=== PATIENT | male | born 1970 | race Caucasian/White ===

== ENCOUNTER 2020-02-25 10:40 | Outpatient (CLI) | payer OTHER, SELFPAY ==
--- NOTE | ~2020-02-25 | XR_ITS ---
EXAMINATION: XR abdomen/kub 1V INDICATION: Calculus of kidney TECHNIQUE: Supine views of the abdomen were obtained on 2 radiographs. COMPARISON: 05/16/2019 FINDINGS: Bowel contents project over the kidneys limiting sensitivity for renal stones. There appear to be multiple stable stones in the lower pole of the left kidney. No stones are identified along th e expected courses of the ureters or within the urinary bladder. Stable pelvic phleboliths are noted. There are no dilated loops of bowel. IMPRESSION: 1. Apparently stable left nephrolithiasis, sensitivity limited by bowel contents. Reviewed, dictated and finalized at location A. IMPRESSION: 1. Apparently stable left nephrolithiasis, sensitivity limited by bowel content s.
== END 2020-02-25 10:41 | disposition home or self-care (01) ==
LOC: ANHIMG 10:48
PROVIDERS: PCP Internal Medicine; Visit Provider Internal Medicine
DX: N20.0 Calculus of kidney (principal)
CPT/HCPCS: 74018

== ENCOUNTER 2020-07-16 08:00 | Outpatient (NON) | payer OTHER, SELFPAY ==
[2020-07-16 17:42] LABS: SARS-CoV-2 RNA PCR Negative
== END 2020-07-16 08:01 ==
PROVIDERS: PCP Internal Medicine; Visit Provider Internal Medicine
DX: R68.89 Other general symptoms and signs (principal); Z20.822 Contact with and (suspected) exposure to COVID-19
CPT/HCPCS: C9803; U0003

== ENCOUNTER 2023-01-07 12:11 | Outpatient (CLI) | payer BC, SELFPAY ==
--- NOTE | ~2023-01-07 | XR_ITS ---
Lumbosacral Spine: AP and lateral views Clinical History: Pain Findings: The normal lordotic curve is maintained. The vertebral bodies and posterior elements are i ntact. The intervertebral disc spaces are preserved. The sacroiliac joints are normally outlined. Impression: No significant abnormality. Reviewed, dictated and finalized at [facility]. Impression: No significant abnormality.
--- NOTE | ~2023-01-07 | XR_ITS ---
Thoracic spine: Clinical Indication: Back pain AP and lateral views were performed. No fracture is seen. There is normal alignment of the vertebrae. The intervertebral disc spaces appe ar normal. Paravertebral soft tissues appear normal. Impression: No significant abnormalities noted. Reviewed, dictated and finalized at [facility]. Impression: No significant abnormalities noted.
--- NOTE | ~2023-01-07 | XR_ITS ---
Supine and upright views of the abdomen Clinical history: Kidney stone COMPARISON: 02/25/2020 Findings: Bowel gas pattern is nonspecific. No evidence for obstruction or free air. 4 probable bilat eral renal stones, measuring up to 5 mm in the left kidney, and approximately 4 mm the right kidney.. Osseous structures are intact. Impression: Bilateral nephrolithiasis, as noted above. Reviewed, dictated and finalized at location . Impression: Bilateral nephrolithiasis, as noted above.
== END 2023-01-07 12:12 | disposition home or self-care (01) ==
LOC: ANHIMG 12:12
PROVIDERS: PCP Internal Medicine; Visit Provider Internal Medicine
DX: N20.0 Calculus of kidney (principal); R10.9 Unspecified abdominal pain; M54.9 Dorsalgia, unspecified
CPT/HCPCS: 72072; 72100; 74018

== ENCOUNTER 2023-04-08 12:20 | Emergency (ER) | payer BC, SELFPAY ==
--- NOTE | ~2023-04-08 | XR_ITS ---
EXAMINATION: XR hip LT 2V w AP pelvis DATE: 04/08/2023 12:47 INDICATION: Left hip pain. Fall. TECHNIQUE: An anteroposterior view of the pelvis and 2 views of left hip were obtained. COMPARISON: None. FINDINGS: Bone alignment is normal. No fracture. There is mild lumbar spondylosis. There is mild oste oarthritis of the hips. IMPRESSION: 1. Mild osteoarthritis of the hips. Reviewed, dictated and finalized at location E.
[2023-04-08 12:33] VITALS: BP 152/99; PULSE 107; RESP 24; TEMP 35.8; O2SAT 100
--- NOTE | 2023-04-08 12:44 | ED.LOWEXIN ---
HPI - Extremity Injury (Lower) General Chief Complaint: Back Pain/Injury Stated Complaint: Left Hip Injury/Fall Time Seen by Provider: 04/08/23 13:10 Source: patient and RN notes reviewed Mode of arrival: ambulatory Limitations: no limitations History of Present Illness HPI Narrative: 52-year-old male presents with concern for left hip pain. Reports 9 days ago he fell in a parking lot landing on his left hip. Reports he had some achiness since that time but today he bent over and felt a sudden ?excruciating? pain in his left hip area going towards his thigh. He reports pain is worse when he walks it is, he can find more comfort when he is kneeling down or lying on his side. He denies loss of bowel or bladder function, perianal anesthesia. He denies new injury or trauma. He denies abdominal pain, fever. Denies bruising, rash, redness, warmth. He reports he took oxycodone with little relief. MD complaint: hip injury Related Data Home Medications Medication Instructions Recorded Confirmed cholecalciferol (vitamin D3) 50 50 mcg PO DAILY 05/01/21 04/08/23 mcg (2,000 unit) tablet Allergies Allergy/AdvReac Type Severity Reaction Status Date / Time No Known Allergies Allergy Unknown Verified 04/08/23 12:52 Review of Systems Review of Systems: CONSTITUTIONAL: Denies malaise, chills, sweats, or fever. CARDIOVASCULAR: Denies chest pain, palpitations, or edema. RESPIRATORY: Denies cough or dyspnea. GASTROINTESTINAL: Denies abdominal pain, nausea, vomiting, diarrhea, loss of bowel function GENITOURINARY: Denies dysuria, hematuria, frequency, loss of bladder function. SKIN: Denies rash or itching. MUSCULOSKELETAL: Reports left hip pain NEUROLOGIC: Denies numbness, weakness, or headache. All systems reviewed & are unremarkable except as noted in HPI and below [facility] Past Medical History Medical History (Updated 04/08/23 @ 13:23 by Montse Bolivar NP) Acute sinusitis BMI 30.0-30.9,adult BMI 31.0-31.9,adult BMI 32.0-32.9,adult BMI 33.0-33.9,adult BMI 34.0-34.9,adult Depression Dietary counseling and surveillance (09/01/17) Encounter for preventive health examination Encounter for routine adult health examination with abnormal findings Encounter to establish care Essential (primary) hypertension Follow up Hypersomnolence Kidney stones Mixed hyperlipidemia 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 Polycythemia Rash Testosterone deficiency Type 2 diabetes mellitus with hyperglycemia Umbilical hernia Vitamin B12 deficiency Vitamin B2 deficiency Vitamin D deficiency Surgical History Surgical History History of kidney surgery Family History Family History Father Family history of diabetes mellitus in first degree relative Social History Social History Smoking status: Never smoker Second hand tobacco smoke exposure: No Alcohol intake: never Lack of Transportation: No Lack of Food: Never True Current Housing: I Have Housing Concerned About Future Housing: No Difficulty Paying Gas/Electric Bills: No Difficulty Paying for Meds: No Currently Unemployed: No Education: Bachelor's Degree Difficulty w/ Childcare or Family Care: No Occupation/Education: occupation Gender identity (if verbalized by the patient): Male Comments At time of signature, agree with nursing past medical, surgical, social and family history. There is no relevant family history pertinent to the presenting complaint Exam Narrative: GENERAL: Well-appearing, well-nourished, and in no acute distress. HEAD: Normocephalic, atraumatic. EYES: PERRLA and EOMI. NECK: Supple. No lymphadenopathy. CHEST: Clear to auscultation. No respiratory distress. HEART: Regular rate and rhythm. Distal pulses palpable and equal, cap refill <3 seconds ABDOMEN: Soft, nontender, non
[2023-04-08] MEDS: KETOROLAC (*BKC) 60 MG/2 ML VIAL IM (12:57)
== END 2023-04-08 13:29 | disposition home or self-care (01) ==
PROVIDERS: Emergency Provider Nurse Practitioner; PCP Internal Medicine
DX: M54.30 Sciatica, unspecified side (principal); I10 Essential (primary) hypertension; E78.2 Mixed hyperlipidemia; W18.30XA Fall on same level, unspecified, initial encounter; Y92.481 Parking lot as the place of occurrence of the external cause
CPT/HCPCS: 73502; 96372; 99213; G0463; J1885

== ENCOUNTER → 2023-05-02 09:44 | Outpatient (CLI) | payer BC, SELFPAY ==
--- NOTE | ~2023-05-02 | MR_ITS ---
MRI of the lumbar spine Clinical History: Left sciatica Technique: Axial T2-weighted images, and sagittal T1-weighted, T2-weighted, and and T2 fat-sat images were acquired. Findings: There is no fracture or subluxation of the lumbar spine. Vertebral bodies maintain normal h eight and alignment. No suspicious bone marrow signal abnormality seen. At L1-L2, there is no disc bulge or herniation. There is mild facet arthropathy. No central canal mary nosis or neural foraminal narrowing. At L2-L3, there is mild diffuse disc bulge and mild to moderate facet arthropathy. No central canal s tenosis. Bilateral neural foramina are preserved. At L3-L4, there is disc herniation at the left paracentral disc herniation extending superiorly, prob ably partially involving the left neural foramen. There is marked narrowing of the left neural forame n. Right neural foramen preserved. There is left lateral recess stenosis. At L4-L5, there is mild diffuse disc bulge with moderate to advanced facet arthropathy. No artie cent ral canal stenosis. Neural foramina are preserved. At L5-S1, there is mild disc bulge with mild facet arthropathy. No central canal stenosis or neural f oraminal narrowing. Paravertebral soft tissues are unremarkable. Impression: Disc herniation/extrusion at the left paracentral region at L3-L4, extending superiorly behind the L3 vertebral body. Associated left lateral recess stenosis and marked narrowing of the left neural fora men at this level. Additional mild degenerative changes, as above. Reviewed, dictated and finalized at [facility]. Impression: Disc herniation/extrusion at the left paracentral region at L3-L4, extending echavarria periorly behind the L3 vertebral body. Associated left lateral recess stenosis and marked narrowing of the left neural foramen at this level. Additional mild degenerative changes, as above.
== END ==
PROVIDERS: PCP Internal Medicine; Visit Provider Internal Medicine
DX: M54.32 Sciatica, left side (principal); R20.2 Paresthesia of skin; M51.26 Other intervertebral disc displacement, lumbar region
CPT/HCPCS: 72148

== ENCOUNTER 2024-05-02 06:17 | Emergency (ER) | payer BC, SELFPAY ==
--- NOTE | ~2024-05-02 | CT_ITS ---
EXAMINATION: CT abdomen pelvis w con DATE: 05/02/2024 07:54 INDICATION: Left lower quadrant abdominal pain. TECHNIQUE: Computed tomography (CT) of the abdomen and pelvis was performed with 100 mL Omnipaque 350 intravenous contrast. Automated exposure control and iterative reconstruction technique were employe d. The dose-length product was 761.90 mGy-cm. COMPARISON: CT abdomen and pelvis 04/26/2019 FINDINGS: The visualized portions of the lung bases demonstrate minimal atelectasis. No pleural effus ion. The heart size is normal. There are coronary artery calcifications. No pericardial effusion. The liver, gallbladder, spleen, pancreas, and adrenal glands normal. There is cortical thinning of the k idneys. There are 3 stones in right kidney measuring up to 8 mm. There are 4 stones in left kidney me asuring up to 13 mm. There is a 7 mm cyst in left kidney. The prostate is mildly enlarged. There are no dilated loops of bowel. The appendix is not visualized. There are no pathologically enlarged lymph nodes. There is no free intraperitoneal fluid. There is chronic asymmetric fat in left inguinal zulma l that may be a hernia. There is moderate thoracic and lumbar spondylosis. IMPRESSION: 1. Bilateral nonobstructing kidney stones. 2. Chronic asymmetric fat in left inguinal canal that may be a hernia. Reviewed, dictated and finalized at location A.
[2024-05-02 06:19] VITALS: BP 145/98; PULSE 117; RESP 22; TEMP 36.6; O2SAT 99
[2024-05-02 06:50] LABS: Basophils Absolute Auto 0.1 K/mm3 (0.0-0.1); Basophils Percent Auto 0.3 % (0.2-1.2); Eosinophils Absolute Auto 0.4 K/mm3 (0-0.3); Eosinophils Percent Auto 1.8 % (0-4.4); Hematocrit 51.8 % (42.0-52.0); Hemoglobin 17.5 g/dL (14.0-18.0); Immature Granulocyte Absolute 0.12 K/mm3 (0.00-0.031); Immature Granulocyte Percent A 0.5 % (0-0.5); Lymphocytes Absolute Auto 1.45 K/mm3 (0.9-3.2); Lymphocytes Percent Auto 6.2 % (18.3-44.2); Mean Corpuscular HGB Conc 33.8 g/dl (32-36); Mean Corpuscular Hemoglobin 29.2 pg (26-34); Mean Corpuscular Volume 86.5 fl (80-100); Mean Platelet Volume 10.6 fl (7.4-10.4); Monocytes Absolute Auto 1.8 K/mm3 (0.1-0.6); Monocytes Percent Auto 7.8 % (2.6-8.5); Neutrophils Absolute Auto 19.5 K/mm3 (1.3-6.7); Neutrophils Percent Auto 83.4 % (45.5-73.1); Platelet Count Result 252 k/mm3 (150-375); Red Blood Count 5.99 M/mm3 (4.6-6.20); Red Cell Distribution Width 12.6 % (11.5-14.5); White Blood Count 23.4 K/mm3 (4.5-10.0)
[2024-05-02 07:00] LABS: Alanine Aminotransferase 25 U/L (6-50); Albumin Level 4.7 g/dL (3.5-5.1); Alkaline Phosphatase 52 U/L (38-126); Anion Gap 13 mmol/L (4-12); Aspartate Amino Transferase 20 U/L (17-59); Bilirubin,Total 1.4 mg/dL (0.2-1.3); Blood Urea Nitrogen 18 mg/dL (9-20); Calcium 9.6 mg/dL (8.4-10.2); Carbon Dioxide 23 mmol/L (22-30); Chloride 102 mmol/L (98-107); Estimated CRCL calculation 62 ml/min; Estimated Glomerular Filt Rate 58; Glucose 287 mg/dL (65-110); Lipase 415 U/L (23-300); Potassium 3.9 mmol/L (3.4-5.0); Sodium 138 mmol/L (137-145)
[2024-05-02 07:29] LABS: Add Urine Microscopic? NO; Appearance Urine Clear (Clear); Bilirubin Urine Negative (Negative); Blood Urine Negative (Negative); Color Urine Yellow (Yellow); Glucose Urine UA 3+ mg/dL (Negative); Ketones Urine Trace mg/dL (Negative); Leukocyte Esterase Ur Negative LEU/UL (Negative); Nitrate Urine Negative (Negative); Protein Urine Negative (Negative); Specific Grav Ur 1.041 (1.001-1.035); Urobilinogen Urine 0.2 mg/dL (<2.0)
--- NOTE | 2024-05-02 07:32 | ED_ITS ---
HPI - Abdominal Pain General Chief Complaint: Abdominal Pain Stated Complaint: abd pain vomiting ulcer Time Seen by Provider: 05/02/24 06:56 History of Present Illness HPI narrative: Patient is a 53-year-old male who presents ER with sudden onset abdominal pain diarrhea. Began this morning at 3:00 a.m.. Cramping in nature. Worse in the lower abdomen. No fevers or chills or sweats. Has associated diarrhea. No known sick contacts. He has not been eating at [employer] (recent e coli outbreak). Patient has had multiple episodes of emesis which is abnormal for him. Related Data Home Medications Medication Instructions Recorded Confirmed cholecalciferol (vitamin D3) 50 50 mcg PO DAILY 05/01/21 03/27/24 mcg (2,000 unit) tablet lisinopril 30 mg tablet 30 mg PO DAILY 06/22/23 03/27/24 testosterone undecanoate 198 mg 198 mg PO BID 03/30/24 capsule Allergies Allergy/AdvReac Type Severity Reaction Status Date / Time No Known Allergies Allergy Unknown Verified 03/27/24 10:07 Review of Systems Review of Systems: All systems reviewed & are unremarkable except as noted in HPI and below Constitutional: Constitutional: Reports no additional constitutional complaints ENT: Reports system reviewed and no additional complaints, except as documented Cardiovascular: Cardiovascular: Reports no additional cardiovascular complaints Respiratory: Respiratory: Reports no additional respiratory complaints Gastrointestinal: Gastrointestinal: Reports abdominal pain, Reports diarrhea, Reports nausea and Reports vomiting Genitourinary: Genitourinary: Reports no additional male genitourinary compl aints [facility] Past Medical History Medical History (Updated 05/02/24 @ 12:05 by Danny Parra MD) Acute sinusitis BMI 29.0-29.9,adult BMI 30.0-30.9,adult BMI 31.0-31.9,adult BMI 32.0-32.9,adult BMI 33.0-33.9,adult BMI 34.0-34.9,adult Chronic back pain Depression Dietary counseling and surveillance (09/01/17) Encounter for preventive health examination Encounter for routine adult health examination with abnormal findings Encounter for routine adult health examination without abnormal findings Encounter to establish care Essential (primary) hypertension Finger pain, left Follow up Hypersomnolence Kidney stones Left sided sciatica Mixed hyperlipidemia 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 Paresthesia of left lower extremity Polycythemia Rash Testosterone deficiency Type 2 diabetes mellitus with hyperglycemia Umbilical hernia Vitamin B12 deficiency Vitamin B2 deficiency Vitamin D deficiency Surgical History Surgical History History of kidney surgery Family History Family History Father Family history of diabetes mellitus in first degree relative Social History Social History Smoking status: Never smoker Second hand tobacco smoke exposure: No Alcohol intake: never Lack of Transportation: No Lack of Food: Never True Current Housing: I Have Housing Concerned About Future Housing: No Difficulty Paying Gas/Electric Bills: No Difficulty Paying for Meds: No Currently Unemployed: No Education: Bachelor's Degree Difficulty w/ Childcare or Family Care: No Occupation/Education: occupation Gender identity (if verbalized by the patient): Male Exam Narrative: GENERAL: Well-appearing, well-nourished, and in no acute distress. HEAD: Normocephalic, atraumatic. ENT: Mucous membranes moist. CHEST: Clear to auscultation. No respiratory distress. HEART: Regular rate and rhythm. Normal peripheral pulses. ABDOMEN: Soft, TTP to the LLQ, nondistended. EXTREMITIES: Normal range of motion. No edema. SKIN: Warm, dry, no rash. NEURO: Alert and oriented x3. PSYCH: Normal mood and affect. Course Course Emergency Course: Patient feels markedly improved after 2 L IV fluid as well as Zofran and Phenergan. Leukocytosis noted however abdomen is soft nontender at this time and imaging year olds done no acute etiology. Suspect this is gastroenteritis likely viral cause. Discharge home. Vital Signs Vital signs: Vital Signs Temperature 97.9 F 05/02/24 06:19 Pulse Rate 117 H 05/02/24 06:19 Respiratory Rate 22 H 05/02/24 06:19 Blood Pressure 145/98 H 05/02/24 06:19 Pulse Oximetry 99 05/02/24 06:19 Oxygen Delivery Room Air 05/02/24 06:19 Temperature 97.9 F 05/02/24 06:19 Pulse Rate 101 H 05/02/24 11:41 Respiratory Rate 15 05/02/24 11:41 Blood Pressure 139/88 05/02/24 11:41 Pulse Oximetry 100 05/02/24 11:41 Oxygen Delivery Room Air 05/02/24 06:19 MDM - Abdominal Pain Lab Data 05/02/24 06:41 05/02/24 06:41 Labs: Lab Results 05/02/24 05/02/24 Range/Units 06:41 07:21 WBC 23.4 H (4.5-10.0) K/mm3 RBC 5.99 (4.6-6.20) M/mm3 Hgb 17.5 (14.0-18.0) g/dL Hct 51.8 (42.0-52.0) % MCV 86.5 (80-100) fl MCH 29.2 (26-34) pg MCHC 33.8 (32-36) g/dl RDW 12.6 (11.5-14.5) % Plt Count 252 (150-375) k/mm3 MPV 10.6 H (7.4-10.4) fl Immature Gran % (Auto) 0.5 (0-0.5) % Neut % (Auto) 83.4 H (45.5-73.1) % Lymph % (Auto) 6.2 L (18.3-44.2) % [place] % (Auto) 7.8 (2.6-8.5) % Eos % (Auto) 1.8 (0-4.4) % Baso % (Auto) 0.3 (0.2-1.2) % Lymph # (Auto) 1.45 (0.9-3.2) K/mm3 [place] # (Auto) 1.8 H (0.1-0.6) K/mm3 Eos # (Auto) 0.4 H (0-0.3) K/mm3 Baso # (Auto) 0.1 (0.0-0.1) K/mm3 Abs Immat Gran (auto) 0.12 H (0.00-0.031) K/mm3 Absolute Neuts (auto) 19.5 H (1.3-6.7) K/mm3 Absolute Nucleated RBC 0.000 (0.0-0.012) K/mm3 Nucleated RBC % 0.0 (0.0-0.2) % Sodium 138 (137-145) mmol/L Potassium 3.9 (3.4-5.0) mmol/L Chloride 102 (98-107) mmol/L Carbon Dioxide 23 (22-30) mmol/L Anion Gap 13 H (4-12) mmol/L BUN 18 (9-20) mg/dL Creatinine 1.30 (0.7-1.3) mg/dL Estim Creat Clear Calc 62 ml/min Estimated GFR 58 L (59 - ) Glucose 287 H (65-110) mg/dL Calcium 9.6 (8.4-10.2) mg/dL Total Bilirubin 1.4 H (0.2-1.3) mg/dL AST 20 (17-59) U/L ALT 25 (6-50) U/L Alkaline Phosphatase 52 (38-126) U/L Total Protein 8.0 (6.3-8.2) g/dL Albumin 4.7 (3.5-5.1) g/dL Lipase 415 H (23-300) U/L Urine Color Yellow (Yellow) Urine Appearance Clear (Clear) Urine pH 5.0 (5.0-9.0) Ur Specific [place] 1.041 H (1.001-1.035) Urine Protein Negative (Negative) mg/dL Urine Glucose (UA) 3+ H (Negative) mg/dL Urine Ketones Trace H (Negative) mg/dL Ur Blood (Man) Negative (Negative) Urine Nitrate Negative (Negative) Urine Bilirubin Negative (Negative) Urine Urobilinogen 0.2 (<2.0) mg/dL Leukocyte Esterase Rfl Negative (Negative) JOÃO/UL Imaging Data Radiologist's impression: ITS Impressions Abdomen/Pelvis CT 05/02/24 08:01 IMPRESSION: 1. Bilateral nonobstructing kidney stones. 2. Chronic asymmetric fat in left inguinal canal that may be a hernia. Discharge Plan Discharge Clinical Impression: Gastroenteritis Patient Disposition: Home, Self-Care Condition: Stable Instructions: Gastroenteritis (ED) Additional Instructions: Please drink plenty of fluids at home. Return to the emergency department if you develop high fevers, have persistent severe abdominal pain, or have bloody stools or vomit, as these could be signs of a more serious medical emergency. Return to the emergency department if you are unable to keep down liquids because of severe nausea/vomiting. Prescriptions: New ondansetron 4 mg tablet,disintegrating 4 mg PO Q6H PRN (Reason: nausea and vomiting) Qty: 10 0RF dicyclomine 20 mg tablet 20 mg PO QID Qty: 20 0RF No Action lisinopril 30 mg tablet 30 mg PO DAILY cholecalciferol (vitamin D3) 50 mcg (2,000 unit) tablet 50 mcg PO DAILY Ozempic 2 mg/dose (8 mg/3 mL) pen injector See Rx Instructions .ROUTE .COMPLEX Qty: 9 1RF Dose Instruction: INJECT 2MG (0.75 ML) SUBCUTANEOUSLY WEEKLY Rx Instructions: INJECT 2MG (0.75 ML) SUBCUTANEOUSLY WEEKLY Farxiga 10 mg tablet See Rx Instructions .ROUTE .COMPLEX Qty: 90 1RF Dose Instruction: TAKE 1 TABLET BY MOUTH EVERY DAY Rx Instructions: TAKE 1 TABLET BY MOUTH EVERY DAY rosuvastatin 40 mg tablet See Rx Instructions .ROUTE .COMPLEX Qty: 90 1RF Dose Instruction: TAKE 1 TABLET BY MOUTH EVERY DAY NO LONGER ON ATORVASTATIN Rx Instructions: TAKE 1 TABLET BY MOUTH EVERY DAY NO LONGER ON ATORVASTATIN metformin 1,000 mg tablet See Rx Instructions .ROUTE .COMPLEX Qty: 225 0RF Dose Instruction: TAKE 1 TABLET BY MOUTH IN THE AM AND ONE AND A HALF TABS BY MOUTH IN THE PM. Rx Instructions: TAKE 1 TABLET BY MOUTH IN THE AM AND ONE AND A HALF TABS BY MOUTH IN THE PM. fenofibric acid (choline) 135 mg capsule,delayed release(DR/EC) See Rx Instructions .ROUTE .COMPLEX Qty: 90 0RF Dose Instruction: TAKE 1 CAPSULE BY MOUTH EVERY DAY Rx Instructions: TAKE 1 CAPSULE BY MOUTH EVERY DAY testosterone undecanoate 198 mg capsule 198 mg PO BID Rx Instructions: must administer with a meal/food Follow-up/Referrals: Mono Nick MD [Primary Care Provider] - 1 Week
[2024-05-02] MEDS: SODIUM CHLORIDE 0.9% IV 1,000 ML 999 ML IV CONT ×2 (07:52→10:28)
[2024-05-02] MEDS: MORPHINE SULFATE (*CRX) 4 MG/ML INJ IV PUSH (07:52)
[2024-05-02] MEDS: ONDANSETRON INJ 4 MG/2 ML VIAL IV PUSH (07:52)
[2024-05-02 08:04] VITALS: BP 139/94; PULSE 107; RESP 13; O2SAT 96
[2024-05-02 09:27] VITALS: BP 128/90; PULSE 105; RESP 14; O2SAT 96
[2024-05-02 09:59] VITALS: BP 148/89; PULSE 96; RESP 18; O2SAT 98
[2024-05-02] MEDS: DICYCLOMINE HCL INJ 20 MG/2 ML VIAL IM (10:28)
[2024-05-02] MEDS: PROMETHAZINE HCL 25 MG/ML AMPUL 12.5 MG IV PUSH (10:28)
[2024-05-02 11:41] VITALS: BP 139/88; PULSE 101; RESP 15; O2SAT 100
[2024-05-02 12:12] VITALS: BP 128/85; PULSE 99; RESP 15; O2SAT 96
== END 2024-05-02 12:24 | disposition home or self-care (01) ==
PROVIDERS: Emergency Medicine; Emergency Provider Emergency Medicine; PCP Internal Medicine
DX: K52.9 Noninfective gastroenteritis and colitis, unspecified (principal); I10 Essential (primary) hypertension; E78.2 Mixed hyperlipidemia; E11.9 Type 2 diabetes mellitus without complications; E55.9 Vitamin D deficiency, unspecified; E53.8 Deficiency of other specified B group vitamins; E53.0 Riboflavin deficiency; Z87.442 Personal history of urinary calculi; Z79.84 Long term (current) use of oral hypoglycemic drugs; Z79.899 Other long term (current) drug therapy; N20.0 Calculus of kidney
CPT/HCPCS: 36415; 74177; 80053; 81003; 83690; 85025; 96361; 96372; 96374; 96375; 99284; J0500; J2270; J2405; J2550; J7030; Q9967

== ENCOUNTER 2024-05-07 10:50 | Outpatient (CLI) | payer BC, SELFPAY ==
--- NOTE | ~2024-05-07 | US_ITS ---
EXAMINATION: US abdomen complete DATE: 05/07/2024 12:22 INDICATION: Unspecified abdominal pain TECHNIQUE: Multiple grayscale and Doppler ultrasound images of the abdomen were obtained. COMPARISON: None FINDINGS: Visualized portion of the pancreas are normal. Portions of the head and tail the pancreas are obscure d. Liver has normal contour, with a smooth surface. There is increased parenchymal echogenicity and c oarsened echotexture consistent with diffuse hepatic steatosis. No liver lesion identified. No intra hepatic biliary duct dilation suspected. Portal venous flow was seen in the hepatopetal, normal direc tion and has normal Doppler waveform. The gallbladder is normal in appearance. There is no cholelith iasis. The common bile duct measures 7 mm, which is mildly dilated. Sonographic Mike sign was repor jacob as negative by the refund clerk. There is normal renal contour and echogenicity bilaterally. The r ight kidney measures 11.9 x 6.2 x 6.0 cm and the left 11.3 x 6.1 x 5.4 cm. There are bilateral echoge maricarmen and shadowing renal stones measuring 11 mm in diameter at the upper pole of the right kidney and 9 mm at the lower pole of the left kidney. There is no hydronephrosis. Normal spleen measuring 12.4 cm maximal length. The visualized proximal to mid abdominal aorta and the proximal superior vena cava are normal. IMPRESSION: 1. Bilateral nonobstructing nephrolithiasis. 2. Diffuse hepatic steatosis. Reviewed, dictated and finalized at location A.
[2024-05-07 11:41] LABS: Amylase 136 U/L (30-110); Lipase 524 U/L (23-300)
[2024-05-07 11:46] LABS: Basophils Percent Auto 0.2 % (0.2-1.2); Eosinophils Absolute Auto 0.5 K/mm3 (0-0.3); Eosinophils Percent Auto 4.9 % (0-4.4); Hematocrit 50.9 % (42.0-52.0); Immature Granulocyte Absolute 0.05 K/mm3 (0.00-0.031); Immature Granulocyte Percent A 0.5 % (0-0.5); Lymphocytes Absolute Auto 1.76 K/mm3 (0.9-3.2); Lymphocytes Percent Auto 16.4 % (18.3-44.2); Mean Corpuscular HGB Conc 33.4 g/dl (32-36); Mean Corpuscular Hemoglobin 29.2 pg (26-34); Mean Corpuscular Volume 87.3 fl (80-100); Mean Platelet Volume 10.8 fl (7.4-10.4); Monocytes Absolute Auto 0.6 K/mm3 (0.1-0.6); Neutrophils Absolute Auto 7.7 K/mm3 (1.3-6.7); Platelet Count Result 228 k/mm3 (150-375); Red Blood Count 5.83 M/mm3 (4.6-6.20); Red Cell Distribution Width 12.8 % (11.5-14.5); White Blood Count 10.7 K/mm3 (4.5-10.0)
== END 2024-05-07 10:51 | disposition home or self-care (01) ==
LOC: ANHIMG 10:54
PROVIDERS: PCP Internal Medicine; Visit Provider Internal Medicine
DX: R10.9 Unspecified abdominal pain (principal); R11.2 Nausea with vomiting, unspecified; R74.8 Abnormal levels of other serum enzymes; I10 Essential (primary) hypertension; N20.0 Calculus of kidney; K76.0 Fatty (change of) liver, not elsewhere classified
CPT/HCPCS: 36415; 76700; 82150; 83690; 85025

== ENCOUNTER 2024-05-08 08:15 | Outpatient (CLI) | payer BC, SELFPAY ==
--- NOTE | ~2024-05-08 | CT_ITS ---
EXAMINATION: CT abdomen pelvis w con DATE: 05/08/2024 09:23 INDICATION: Epigastric abdominal pain. TECHNIQUE: Computed tomography (CT) of the abdomen and pelvis was performed with 100 mL Omnipaque 350 intravenous contrast. Automated exposure control and iterative reconstruction technique were employe d. The dose-length product was 866.73 mGy-cm. COMPARISON: CT abdomen and pelvis 05/02/2024 FINDINGS: The visualized portions of the lung bases demonstrate mild atelectasis. No pleural effusion . The heart size is normal. There are coronary artery calcifications. No pericardial effusion. The li tati, gallbladder, spleen, pancreas, and adrenal glands are normal. There is cortical thinning of the kidneys. There are cysts in the kidneys measuring up to 9 mm on the left. There are 3 stones in right kidney measuring up to 9 mm. There are 6 stones in left kidney measuring up to 10 mm. The prostate i s moderately enlarged. There are no dilated loops of bowel. The appendix is not visualized. There are no pathologically enlarged lymph nodes. There is chronic asymmetric fat in left inguinal canal. Ther e is no free intraperitoneal fluid. There is mild thoracic and lumbar spondylosis. IMPRESSION: 1. Bilateral nonobstructing kidney stones. 2. Chronic asymmetric fat in left inguinal canal that may be a hernia. Reviewed, dictated and finalized at location B.
== END 2024-05-08 08:16 | disposition home or self-care (01) ==
PROVIDERS: PCP Internal Medicine; Visit Provider Internal Medicine
DX: N20.0 Calculus of kidney (principal); E65 Localized adiposity
CPT/HCPCS: 74177; Q9967

== ENCOUNTER 2024-05-25 07:11 | Emergency (ER) | payer BC, SELFPAY ==
--- NOTE | ~2024-05-25 | XR_ITS ---
EXAMINATION: XR abdomen/kub 1V DATE: 05/25/2024 08:08 INDICATION: Constipation. Abdominal pain. TECHNIQUE: A supine view of the abdomen on 2 radiographs was obtained. COMPARISON: Abdomen radiographs 05/09/2023, CT abdomen and pelvis 05/08/2024 FINDINGS: There are no dilated loops of bowel. There is a small volume of stool in the colon. There a re phleboliths in the pelvis. There are stones in the kidneys measuring up to 8 mm on the right. IMPRESSION: 1. Normal bowel gas pattern. 2. Bilateral kidney stones. Reviewed, dictated and finalized at [facility]
[2024-05-25 07:10] VITALS: BP 162/116; PULSE 95; RESP 35; TEMP 36.2; O2SAT 100
[2024-05-25 07:39] LABS: Basophils Percent Auto 0.3 % (0.2-1.2); Eosinophils Absolute Auto 0.4 K/mm3 (0-0.3); Eosinophils Percent Auto 4.3 % (0-4.4); Hematocrit 46.7 % (42.0-52.0); Hemoglobin 16.7 g/dL (14.0-18.0); Immature Granulocyte Absolute 0.03 K/mm3 (0.00-0.031); Immature Granulocyte Percent A 0.3 % (0-0.5); Lymphocytes Absolute Auto 1.65 K/mm3 (0.9-3.2); Lymphocytes Percent Auto 16.1 % (18.3-44.2); Mean Corpuscular HGB Conc 35.8 g/dl (32-36); Mean Corpuscular Hemoglobin 29.9 pg (26-34); Mean Corpuscular Volume 83.7 fl (80-100); Mean Platelet Volume 10.5 fl (7.4-10.4); Monocytes Absolute Auto 0.5 K/mm3 (0.1-0.6); Monocytes Percent Auto 5.2 % (2.6-8.5); Neutrophils Absolute Auto 7.5 K/mm3 (1.3-6.7); Neutrophils Percent Auto 73.8 % (45.5-73.1); Platelet Count Result 195 k/mm3 (150-375); Red Blood Count 5.58 M/mm3 (4.6-6.20); Red Cell Distribution Width 12.3 % (11.5-14.5); White Blood Count 10.2 K/mm3 (4.5-10.0)
[2024-05-25 07:41] LABS: Add Urine Microscopic? NO; Appearance Urine Clear (Clear); Bilirubin Urine Negative (Negative); Blood Urine Negative (Negative); Color Urine Yellow (Yellow); Glucose Urine UA 3+ mg/dL (Negative); Ketones Urine Negative (Negative); Leukocyte Esterase Ur Negative LEU/UL (Negative); Nitrate Urine Negative (Negative); Protein Urine Negative (Negative); Specific Grav Ur 1.033 (1.001-1.035); Urobilinogen Urine 0.2 mg/dL (<2.0)
[2024-05-25 07:50] LABS: Alanine Aminotransferase 21 U/L (6-50); Albumin Level 4.3 g/dL (3.5-5.1); Alkaline Phosphatase 53 U/L (38-126); Anion Gap 15 mmol/L (4-12); Aspartate Amino Transferase 23 U/L (17-59); Bilirubin,Total 1.1 mg/dL (0.2-1.3); Blood Urea Nitrogen 16 mg/dL (9-20); Calcium 9.5 mg/dL (8.4-10.2); Carbon Dioxide 18 mmol/L (22-30); Chloride 102 mmol/L (98-107); Estimated CRCL calculation 67 ml/min; Estimated Glomerular Filt Rate > 60; Glucose 294 mg/dL (65-110); Lipase 210 U/L (23-300); Sodium 135 mmol/L (137-145)
[2024-05-25] MEDS: MORPHINE SULFATE (*CRX) 4 MG/ML INJ IV PUSH (08:22)
[2024-05-25] MEDS: ONDANSETRON INJ 4 MG/2 ML VIAL IV PUSH (08:22)
--- NOTE | 2024-05-25 08:22 | ED_ITS ---
HPI - Abdominal Pain General Chief Complaint: Abdominal Pain Stated Complaint: lower abd pain History of Present Illness HPI narrative: Patient is a 53-year-old male who presents ER with abdominal pain. Sharp and cramping. Reports he has been constipated for several days. Finally had a bowel movement just before I saw him. Reports it was firm. No urinary frequency urgency or dysuria. No vomiting. Was seen a couple weeks ago for gastroenteritis. He is scheduled to have an EGD Next week.. Related Data Home Medications Medication Instructions Recorded Confirmed lisinopril 30 mg tablet 30 mg PO DAILY 06/22/23 05/22/24 metformin 1,000 mg tablet 2,000 mg PO DAILY 05/22/24 05/22/24 semaglutide 2 mg/dose (8 mg/3 mL) 2 mg subcut WEEKLY 05/22/24 05/22/24 subcutaneous pen injector (Ozempic) Allergies Allergy/AdvReac Type Severity Reaction Status Date / Time No Known Allergies Allergy Unknown Verified 05/25/24 07:18 Review of Systems Review of Systems: All systems reviewed & are unremarkable except as noted in HPI and below Constitutional: Constitutional: Reports no additional constitutional complaints ENT: Reports system reviewed and no additional complaints, except as documented Cardiovascular: Cardiovascular: Reports no additional cardiovascular complaints Respiratory: Respiratory: Reports no additional respiratory complaints Gastrointestinal: Gastrointestinal: Reports abdominal pain, Reports constipation, Denies diarrhea, Denies nausea and Denies vomiting [facility] Past Medical History Medical History (Updated 05/25/24 @ 10:55 by Danny Parra MD) Abdominal pain Acute sinusitis BMI 29.0-29.9,adult BMI 30.0-30.9,adult BMI 31.0-31.9,adult BMI 32.0-32.9,adult BMI 33.0-33.9,adult BMI 34.0-34.9,adult Chronic back pain Depression Dietary counseling and surveillance (09/01/17) Encounter for preventive health examination Encounter for routine adult health examination with abnormal findings Encounter for routine adult health examination without abnormal findings Encounter to establish care Essential (primary) hypertension Finger pain, left Follow up Hospital discharge follow-up Hypersomnolence Kidney stones Left sided sciatica Mixed hyperlipidemia Nausea and vomiting 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 Paresthesia of left lower extremity Polycythemia Rash Testosterone deficiency Type 2 diabetes mellitus with hyperglycemia Umbilical hernia Vitamin B12 deficiency Vitamin B2 deficiency Vitamin D deficiency Surgical History Surgical History History of kidney surgery Family History Family History Father Family history of diabetes mellitus in first degree relative Social History Social History Smoking status: Never smoker Second hand tobacco smoke exposure: No Alcohol intake: never Substance use type: does not use Lack of Transportation: No Lack of Food: Never True Current Housing: I Have Housing Concerned About Future Housing: No Difficulty Paying Gas/Electric Bills: No Difficulty Paying for Meds: No Currently Unemployed: No Education: Bachelor's Degree Difficulty w/ Childcare or Family Care: No Living arrangements: with family Occupation/Education: occupation Gender identity (if verbalized by the patient): Male Spiritual care concerns: No Exam Narrative: GENERAL: Uncomfortable-appearing, well-nourished, and in no acute distress. HEAD: Normocephalic, atraumatic. ENT: Mucous membranes moist. CHEST: Clear to auscultation. No respiratory distress. HEART: Regular rate and rhythm. Normal peripheral pulses. ABDOMEN: Soft, diffuse abdominal discomfort without point tenderness, nondistended. EXTREMITIES: Normal range of motion. No edema. SKIN: Warm, dry, no rash. NEURO: Alert and oriented x3. PSYCH: Normal mood and affect. Course Course Emergency Course: Patient feeling improved. Still some mild discomfort on exam. Labs unremarkable. Discussed CT imaging only available if he is placed in ambulance to [facility] and may reveal imaging as we are currently without CT capability. Patient does not feel this is necessary as he is feeling improved in recently had imaging. He will be discharged with supportive care. Vital Signs Vital signs: Vital Signs Temperature 97.1 F L 05/25/24 07:10 Pulse Rate 95 05/25/24 07:10 Respiratory Rate 35 H 05/25/24 07:10 Blood Pressure 162/116 H 05/25/24 07:10 Pulse Oximetry 100 05/25/24 07:10 Oxygen Delivery Room Air 05/25/24 07:10 Temperature 97.1 F L 05/25/24 07:10 Pulse Rate 97 05/25/24 09:36 Respiratory Rate 18 05/25/24 09:36 Blood Pressure 134/93 H 05/25/24 09:36 Pulse Oximetry 99 05/25/24 09:36 Oxygen Delivery Room Air 05/25/24 07:10 MDM - Abdominal Pain Lab Data 05/25/24 07:33 05/25/24 07:33 Labs: Lab Results 05/25/24 Range/Units 07:33 WBC 10.2 H (4.5-10.0) K/mm3 RBC 5.58 (4.6-6.20) M/mm3 Hgb 16.7 (14.0-18.0) g/dL Hct 46.7 (42.0-52.0) % MCV 83.7 (80-100) fl MCH 29.9 (26-34) pg MCHC 35.8 (32-36) g/dl RDW 12.3 (11.5-14.5) % Plt Count 195 (150-375) k/mm3 MPV 10.5 H (7.4-10.4) fl Immature Gran % (Auto) 0.3 (0-0.5) % Neut % (Auto) 73.8 H (45.5-73.1) % Lymph % (Auto) 16.1 L (18.3-44.2) % [place] % (Auto) 5.2 (2.6-8.5) % Eos % (Auto) 4.3 (0-4.4) % Baso % (Auto) 0.3 (0.2-1.2) % Lymph # (Auto) 1.65 (0.9-3.2) K/mm3 [place] # (Auto) 0.5 (0.1-0.6) K/mm3 Eos # (Auto) 0.4 H (0-0.3) K/mm3 Baso # (Auto) 0.0 (0.0-0.1) K/mm3 Abs Immat Gran (auto) 0.03 (0.00-0.031) K/mm3 Absolute Neuts (auto) 7.5 H (1.3-6.7) K/mm3 Absolute Nucleated RBC 0.000 (0.0-0.012) K/mm3 Nucleated RBC % 0.0 (0.0-0.2) % Sodium 135 L (137-145) mmol/L Potassium 4.0 (3.4-5.0) mmol/L Chloride 102 (98-107) mmol/L Carbon Dioxide 18 L (22-30) mmol/L Anion Gap 15 H (4-12) mmol/L BUN 16 (9-20) mg/dL Creatinine 1.20 (0.7-1.3) mg/dL Estim Creat Clear Calc 67 ml/min Estimated GFR > 60 (59 - ) Glucose 294 H (65-110) mg/dL Calcium 9.5 (8.4-10.2) mg/dL Total Bilirubin 1.1 (0.2-1.3) mg/dL AST 23 (17-59) U/L ALT 21 (6-50) U/L Alkaline Phosphatase 53 (38-126) U/L Total Protein 7.0 (6.3-8.2) g/dL Albumin 4.3 (3.5-5.1) g/dL Lipase 210 (23-300) U/L Urine Color Yellow (Yellow) Urine Appearance Clear (Clear) Urine pH 5.0 (5.0-9.0) Ur Specific [place] 1.033 (1.001-1.035) Urine Protein Negative (Negative) mg/dL Urine Glucose (UA) 3+ H (Negative) mg/dL Urine Ketones Negative (Negative) mg/dL Ur Blood (Man) Negative (Negative) Urine Nitrate Negative (Negative) Urine Bilirubin Negative (Negative) Urine Urobilinogen 0.2 (<2.0) mg/dL Leukocyte Esterase Rfl Negative (Negative) JOÃO/UL Imaging Data Radiologist's impression: ITS Impressions Abdomen X-Ray 05/25/24 08:24 IMPRESSION: 1. Normal bowel gas pattern. 2. Bilateral kidney stones. Discharge Plan Discharge Clinical Impression: Abdominal bloating with cramps Patient Disposition: Home, Self-Care Condition: Stable Instructions: Abdominal Pain (ED) Additional Instructions: Return to the emergency department if you develop severe abdominal pain, severe nausea and vomiting to the point where you are unable to keep down fluids, if you develop chest pain or difficulty breathing, blood in your stool, dizziness or fainting, or if you develop any other new or concerning symptoms as these could be signs of more serious medical illness. Try to stay well hydrated. Prescriptions: New dicyclomine 20 mg tablet 20 mg PO QID Qty: 20 0RF ondansetron 4 mg tablet,disintegrating 4 mg PO Q6H PRN (Reason: nausea and vomiting) Qty: 10 0RF docusate sodium 100 mg capsule 100 mg PO BID Qty: 14 0RF No Action lisinopril 30 mg tablet 30 mg PO DAILY metformin 1,000 mg tablet 2,000 mg PO DAILY Ozempic 2 mg/dose (8 mg/3 mL) pen injector 2 mg subcut WEEKLY Patient Comments: tuesday or tuesday Rx Instructions: INJECT 2MG (0.75 ML) SUBCUTANEOUSLY WEEKLY Farxiga 10 mg tablet See Rx Instructions .ROUTE .COMPLEX Qty: 90 1RF Dose Instruction: TAKE 1 TABLET BY MOUTH EVERY DAY Rx Instructions: TAKE 1 TABLET BY MOUTH EVERY DAY rosuvastatin 40 mg tablet See Rx Instructions .ROUTE .COMPLEX Qty: 90 1RF Dose Instruction: TAKE 1 TABLET BY MOUTH EVERY DAY NO LONGER ON ATORVASTATIN Rx Instructions: TAKE 1 TABLET BY MOUTH EVERY DAY NO LONGER ON ATORVASTATIN fenofibric acid (choline) 135 mg capsule,delayed release(DR/EC) See Rx Instructions .ROUTE .COMPLEX Qty: 90 0RF Dose Instruction: TAKE 1 CAPSULE BY MOUTH EVERY DAY Rx Instructions: TAKE 1 CAPSULE BY MOUTH EVERY DAY Follow-up/Referrals: Mono Nick MD [Primary Care Provider] - 1 Week
[2024-05-25 09:36] VITALS: BP 134/93; PULSE 97; RESP 18; O2SAT 99
[2024-05-25 11:18] VITALS: BP 140/94; PULSE 100; RESP 18; O2SAT 96
== END 2024-05-25 11:19 | disposition home or self-care (01) ==
PROVIDERS: Emergency Provider Emergency Medicine; PCP Internal Medicine
DX: R10.9 Unspecified abdominal pain (principal); R14.0 Abdominal distension (gaseous); E11.9 Type 2 diabetes mellitus without complications; E78.2 Mixed hyperlipidemia; E53.8 Deficiency of other specified B group vitamins; E55.9 Vitamin D deficiency, unspecified; E53.0 Riboflavin deficiency; Z79.899 Other long term (current) drug therapy; Z79.84 Long term (current) use of oral hypoglycemic drugs; Z79.85 Long-term (current) use of injectable non-insulin antidiabetic drugs; Z87.442 Personal history of urinary calculi; N20.0 Calculus of kidney
CPT/HCPCS: 36415; 74018; 80053; 81003; 83690; 85025; 96374; 96375; 99284; J2270; J2405

== ENCOUNTER 2024-05-29 00:26 | Day surgery (SDC) | payer BC, SELFPAY ==
[2024-05-22 10:37] VITALS: BMI 28.2
[2024-05-29 10:00] VITALS: BP 154/96; PULSE 89; RESP 20; TEMP 36.3; O2SAT 100; BMI 28.8
[2024-05-29 10:10] LABS: Glucose Point of Care 156 mg/dl (65-105)
[2024-05-29] MEDS: LACTATED RINGERS 1,000 ML 150 ML IV CONT (10:23)
--- NOTE | 2024-05-29 10:23 | P.PNAN_ITS ---
Anes - Initial Pre Proc Eval Procedure: Operation Date: 05/29/24 11:00 Proposed Procedures p Esophagogastroduodenoscopy - Vidal Galloway MD Date/Time: 05/29/24 10:23 Surgeon: Vidal Galloway MD Pre Op Diagnosis: Abd Pain Patient Data Age: 53 Gender: M Height: 1.8 m Weight: 93.7 kg Last Vital Signs Temp 97.3 F L 05/29/24 10:00 Pulse 89 05/29/24 10:00 Resp 20 05/29/24 10:00 BP 154/96 H 05/29/24 10:00 Pulse Ox 100 05/29/24 10:00 O2 Del Method Room Air 05/29/24 10:00 Allergies Allergy/AdvReac Type Severity Reaction Status Date / Time No Known Allergies Allergy Unknown Verified 05/29/24 10:09 Home Medications Medication Instructions Recorded Confirmed Type lisinopril 30 mg tablet 30 mg PO DAILY 06/22/23 05/29/24 History dapagliflozin propanediol 10 mg See Rx Instructions .Route 01/13/24 05/29/24 Rx tablet (Farxiga) .COMPLEX #90 tabs rosuvastatin 40 mg tablet See Rx Instructions .Route 01/30/24 05/29/24 Rx .COMPLEX #90 tabs metformin 1,000 mg tablet 2,000 mg PO DAILY 05/22/24 05/29/24 History semaglutide 2 mg/dose (8 mg/3 mL) 2 mg subcut WEEKLY 05/22/24 05/29/24 History subcutaneous pen injector (Ozempic) dicyclomine 20 mg tablet 20 mg PO QID #20 tabs 05/25/24 05/29/24 Rx docusate sodium 100 mg capsule 100 mg PO BID #14 caps 05/25/24 05/29/24 Rx ondansetron 4 mg disintegrating 4 mg PO Q6H PRN nausea and 05/25/24 05/29/24 Rx tablet vomiting #10 tabs fenofibric acid (choline) 135 mg See Rx Instructions .Route 05/28/24 05/29/24 Rx capsule,delayed release .COMPLEX #90 caps metformin 1,000 mg tablet 1,000 mg PO .COMPLEX #225 tabs 05/28/24 05/29/24 Rx Laboratory Tests 05/29/24 10:05 POC Capillary Glucose 156 H mg/dl (65-105) Patient hx anesthesia problems: none Family hx anesthesia problems: none Results Review: All pre-operative results and documents have been reviewed as part of the pre- operative evaluation. [facility] Past Medical History Medical History (Updated 05/26/24 @ 00:01 by Jesse Faustin) Abdominal pain Acute sinusitis BMI 29.0-29.9,adult BMI 30.0-30.9,adult BMI 31.0-31.9,adult BMI 32.0-32.9,adult BMI 33.0-33.9,adult BMI 34.0-34.9,adult Chronic back pain Depression Dietary counseling and surveillance (09/01/17) Encounter for preventive health examination Encounter for routine adult health examination with abnormal findings Encounter for routine adult health examination without abnormal findings Encounter to establish care Essential (primary) hypertension Finger pain, left Follow up Hospital discharge follow-up Hypersomnolence Kidney stones Left sided sciatica Mixed hyperlipidemia Nausea and vomiting 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 Paresthesia of left lower extremity Polycythemia Rash Testosterone deficiency Type 2 diabetes mellitus with hyperglycemia Umbilical hernia Vitamin B12 deficiency Vitamin B2 deficiency Vitamin D deficiency Surgical History Surgical History History of kidney surgery Family History Family History Father Family history of diabetes mellitus in first degree relative Social History Social History Smoking status: Never smoker Second hand tobacco smoke exposure: No Alcohol intake: never Substance use type: does not use Lack of Transportation: No Lack of Food: Never True Current Housing: I Have Housing Concerned About Future Housing: No Difficulty Paying Gas/Electric Bills: No Difficulty Paying for Meds: No Currently Unemployed: No Education: Bachelor's Degree Difficulty w/ Childcare or Family Care: No Living arrangements: with family Occupation/Education: occupation Gender identity (if verbalized by the patient): Male Spiritual care concerns: No Anes - Eval Final PreProcedure Day of Procedure 05/29/24 10:23 Patient weight: normal Heart: regular rate and rhythm Lungs: clear to auscultation Airway: Mallampati scale class II Neurological: alert and oriented Last oral intake: >/= 8 hours ASA classification: III Emergent: no Anesthetic plan: proceed Results Review: All pre-operative results and documents have been reviewed as part of the pre- operative evaluation. Informed Consent: The patient's anesthetic plan and its attendant risks and benefits were discussed with the patient/family/POA. Questions were solicited and answers provided to the satisfaction of the patient/family/POA.
--- NOTE | 2024-05-29 11:27 | P.HP_ITS ---
H&P: HPI History of Present Illness Date/Time: 05/29/24 11:27 Chief Complaint: Abdominal pain Narrative: the patient was seen on 05/25/2024 in the emergency department for an attack of periumbilical/ epigastric pain. He states he has been having recurrent episodes of abdominal pain and is referred by his primary care physician for an EGD. He denies melena, hematemesis, or unintentional weight loss. Review of Systems Review of Systems: All systems reviewed & are unremarkable except as noted in HPI and below [facility] Past Medical History Medical History (Updated 05/26/24 @ 00:01 by [facility] Ramin) Abdominal pain Acute sinusitis BMI 29.0-29.9,adult BMI 30.0-30.9,adult BMI 31.0-31.9,adult BMI 32.0-32.9,adult BMI 33.0-33.9,adult BMI 34.0-34.9,adult Chronic back pain Depression Dietary counseling and surveillance (09/01/17) Encounter for preventive health examination Encounter for routine adult health examination with abnormal findings Encounter for routine adult health examination without abnormal findings Encounter to establish care Essential (primary) hypertension Finger pain, left Follow up Hospital discharge follow-up Hypersomnolence Kidney stones Left sided sciatica Mixed hyperlipidemia Nausea and vomiting 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 Paresthesia of left lower extremity Polycythemia Rash Testosterone deficiency Type 2 diabetes mellitus with hyperglycemia Umbilical hernia Vitamin B12 deficiency Vitamin B2 deficiency Vitamin D deficiency Surgical History Surgical History History of kidney surgery Family History Family History Father Family history of diabetes mellitus in first degree relative Social History Social History Smoking status: Never smoker Second hand tobacco smoke exposure: No Alcohol intake: never Substance use type: does not use Lack of Transportation: No Lack of Food: Never True Current Housing: I Have Housing Concerned About Future Housing: No Difficulty Paying Gas/Electric Bills: No Difficulty Paying for Meds: No Currently Unemployed: No Education: Bachelor's Degree Difficulty w/ Childcare or Family Care: No Living arrangements: with family Occupation/Education: occupation Gender identity (if verbalized by the patient): Male Spiritual care concerns: No Meds Home Medications and Allergies Home Medications Medication Instructions Recorded Confirmed Type lisinopril 30 mg tablet 30 mg PO DAILY 06/22/23 05/29/24 History dapagliflozin propanediol 10 mg See Rx Instructions .Route 01/13/24 05/29/24 Rx tablet (Farxiga) .COMPLEX #90 tabs rosuvastatin 40 mg tablet See Rx Instructions .Route 01/30/24 05/29/24 Rx .COMPLEX #90 tabs metformin 1,000 mg tablet 2,000 mg PO DAILY 05/22/24 05/29/24 History semaglutide 2 mg/dose (8 mg/3 mL) 2 mg subcut WEEKLY 05/22/24 05/29/24 History subcutaneous pen injector (Ozempic) dicyclomine 20 mg tablet 20 mg PO QID #20 tabs 05/25/24 05/29/24 Rx docusate sodium 100 mg capsule 100 mg PO BID #14 caps 05/25/24 05/29/24 Rx ondansetron 4 mg disintegrating 4 mg PO Q6H PRN nausea and 05/25/24 05/29/24 Rx tablet vomiting #10 tabs fenofibric acid (choline) 135 mg See Rx Instructions .Route 05/28/24 05/29/24 Rx capsule,delayed release .COMPLEX #90 caps metformin 1,000 mg tablet 1,000 mg PO .COMPLEX #225 tabs 05/28/24 05/29/24 Rx Allergies Allergy/AdvReac Type Severity Reaction Status Date / Time No Known Allergies Allergy Unknown Verified 05/29/24 10:09 Vital Signs Vital Signs - 24 hr 05/29/24 10:00 Temperature 97.3 F L Pulse Rate 89 Respiratory Rate 20 Blood Pressure 154/96 H Pulse Oximetry 100 Oxygen Delivery Room Air Exam Const: General: cooperative and healthy appearing Resp: Effort & Inspection: normal respiratory effort and able to speak in complete sentences Auscultation: clear to auscultation bilaterally Cardio: Rate: regular rate Rhythm: regular rhythm GI: Inspection: normal to inspection GI Palp: No No hepatosplenomegaly present Auscultation: normal bowel sounds Rectal Exam: deferred Skin: General skin exam: normal color Psych: Appearance: grossly normal Mental Status: mental status grossly normal Assessment and Plan Assessment and plan (1) Abdominal pain: Qualifiers: Abdominal location: epigastric Qualified Code(s): R10.13 - Epigastric pain Code(s): R10.9 - Unspecified abdominal pain Status: Acute Assessment and Plan: The patient is deemed a good candidate for the procedure. Consent signed. Will proceed.
[2024-05-29 11:50] VITALS: BP 134/100; PULSE 97; RESP 22; O2SAT 99
[2024-05-29 12:00] VITALS: BP 140/98; PULSE 83; RESP 19; O2SAT 99
[2024-05-29 12:10] VITALS: BP 143/103; PULSE 80; RESP 19; O2SAT 99
== END 2024-05-29 12:15 | disposition home or self-care (01) ==
PROVIDERS: PCP Internal Medicine; Visit Provider Internal Medicine Gastroenterology
PROC: 0DJ08ZZ Inspection of Upper Intestinal Tract, Via Natural or Artificial Opening Endoscopic (ICD-10-PCS; CPT 43235; principal; 2024-05-29 11:00)
DX: K29.30 Chronic superficial gastritis without bleeding (principal); E11.9 Type 2 diabetes mellitus without complications; E78.2 Mixed hyperlipidemia; I10 Essential (primary) hypertension; F32.A Depression, unspecified; Z79.84 Long term (current) use of oral hypoglycemic drugs; Z79.85 Long-term (current) use of injectable non-insulin antidiabetic drugs
CPT/HCPCS: 43239; 82948; 88305; J2003; J2704; J7120